=== PATIENT | male | born 1995 | race Native Hawaiian/Other Pacific Islander ===

== ENCOUNTER 2017-05-19 22:26 | Emergency (ER) | payer OTHER ==
[2017-05-19 22:29] VITALS: BP 151/89; PULSE 92; RESP 16; TEMP 99.1; O2SAT 100
[2017-05-19] MEDS ORDERED: Lidocaine 2% w Epi 1:100,000 Inj IJ ONE (23:01)
--- NOTE | 2017-05-19 23:26 | ED PDOC ---
HPI: Skin/Bite Injury Time Seen by Provider: 05/19/17 22:34 Chief Complaint (Nursing): Abnormal Skin Integrity Chief Complaint (Provider): Laceration History Per: Patient Additional Complaint(s): 21 yo male, no PMH, presents to ED for evaluation of laceration to forehead. Patient fell and hit forehead on edge of table. Patient also hit back of head, small laceration noted. Past Medical History Reviewed: Nursing Documentation, Vital Signs Vital Signs: Last Vital Signs Temp 99.1 F 05/19/17 22:27 Pulse 92 H 05/19/17 22:27 Resp 16 05/19/17 22:27 BP 151/89 H 05/19/17 22:27 Pulse Ox 100 05/19/17 23:26 - Medical History PMH: No Chronic Diseases - Surgical History Surgical History: No Surg Hx - Family History Family History: States: No Known Family Hx - Living Arrangements Living Arrangements: With Family - Social History Current smoker - smoking cessation education provided: Yes Alcohol: Social Drugs: Denies - Home Medications Home Medications: Ambulatory Orders Medication Instructions Recorded traMADol [Ultram] 50 mg PO Q4 #5 tab 05/20/17 - Allergies Allergies/Adverse Reactions: Allergies Allergy/AdvReac Type Severity Reaction Status Date / Time No Known Allergies Allergy Verified 05/19/17 22:26 Review of Systems ROS Statement: Except As Marked, All Systems Reviewed And Found Negative Physical Exam - Reviewed Nursing Documentation Reviewed: Yes Vital Signs Reviewed: Yes - Physical Exam Appears: Positive for: Well, Non-toxic, No Acute Distress Head Exam: Positive for: ATRAUMATIC, NORMAL INSPECTION, NORMOCEPHALIC Skin: Positive for: Normal Color, Warm, DRY Eye Exam: Positive for: EOMI, Normal appearance, PERRL ENT: Positive for: Normal ENT Inspection Neck: Positive for: Normal, Painless ROM Cardiovascular/Chest: Positive for: Regular Rate, Rhythm Respiratory: Positive for: CNT, Normal Breath Sounds Gastrointestinal/Abdominal: Positive for: Normal Exam, Bowel Sounds, Soft Back: Positive for: Normal Inspection Extremity: Positive for: Normal ROM Neurologic/Psych: Positive for: Alert, Oriented - ECG O2 Sat by Pulse Oximetry: 100 Medical Decision Making Medical Decision Making: Laceration repaired by keno writer/runner. Wound care discussed Head CT IMPRESSION: No acute intracranial hemorrhage, or suspicious mass effect. Disposition - Clinical Impression Clinical Impression: Head injury, Laceration - Patient ED Disposition Is Patient to be Admitted: No - Disposition Disposition: Routine/Home Disposition Time: 00:00 Condition: STABLE Prescriptions: traMADol [Ultram] 50 mg PO Q4 #5 tab Instructions: Laceration (ED), Head Injury (ED) Forms: [employer] (Croatian) Laceration - Laceration Repair laceration Wound Length (In cm): 4 Description Of Wound: Linear Wound Cleansed With: Sterile Saline Anesthesia: Lidocaine 1% Wound Examination: Irrigated With Saline Wound Closure: Skin Glue, Suture Suture Technique And Material Used: Vicryl (5-0) Wound Complexity: Intermediate
--- NOTE | 2017-05-19 23:53 | CT ---
EXAM: CT Head Without Intravenous Contrast CLINICAL HISTORY: 21 years old, male; Injury or trauma; Fall; Initial encounter; Abrasion; Forehead; Additional info: Head injury, possible loc TECHNIQUE: Axial computed tomography images of the head/brain without intravenous contrast. All CT scans at this facility use one or more dose reduction techniques, viz.: automated exposure control; ma/kV adjustment per patient size (including targeted exams where dose is matched to indication; i.e. head); or iterative reconstruction technique. Coronal and sagittal reformatted images were created and reviewed. COMPARISON: No relevant prior studies available. FINDINGS: Brain: No acute intracranial hemorrhage. No significant white matter disease. No edema. Ventricles: No significant ventriculomegaly. Bones: No acute displaced fracture. Sinuses: Unremarkable as visualized. No acute sinusitis. Mastoid air cells: Unremarkable as visualized. No mastoid effusion. IMPRESSION: No acute intracranial hemorrhage, or suspicious mass effect.
== END 2017-05-20 00:51 | disposition home or self-care (01) ==
LOC: H.ER 22:26
DX: S01.81XA Laceration without foreign body of other part of head, initial encounter (principal); W18.30XA Fall on same level, unspecified, initial encounter; W22.03XA Walked into furniture, initial encounter